=== PATIENT | male | born 1985 | race Hispanic/Latino ===

== ENCOUNTER 2018-04-18 22:16 | Emergency (ER) | payer OTHER ==
[2018-04-18] MEDS ORDERED: Naloxone 0.4 mg/ml Inj (Adult) ONE (22:19)
[2018-04-18] MEDS ORDERED: Dextrose 50% SYRINGE Inj (50 ml) ONE (22:25)
[2018-04-18] MEDS ORDERED: Dextrose 50% SYRINGE Inj (50 ml) IVP ONE (22:26)
[2018-04-18 22:54] LABS: BASO # 0.1 K/uL (0.0-0.2); BASO % 0.5 % (0.0-2.0); EOS # 0.1 K/uL (0.0-0.7); EOS % 0.4 % (0.0-4.0); HEMOGLOBIN 11.4 g/dL (12.0-18.0); LYMPH # 2.3 K/uL (1.0-4.3); LYMPH % 17.7 % (20.0-40.0); MEAN CELL VOLUME 86.4 fl (80.0-94.0); MEAN CORPUSCULAR HEMOGLOBIN 27.7 pg (27.0-31.0); MEAN CORPUSCULAR HGB CONC 32.1 g/dL (33.0-37.0); MEAN PLATELET VOLUME 8.4 fl (7.2-11.7); MONO # 0.9 K/uL (0.0-0.8); MONO % 7.1 % (0.0-10.0); NEUT # 9.5 K/uL (1.8-7.0); NEUT % 74.3 % (50.0-75.0); RBC 4.12 Mil/uL (4.40-5.90); RED CELL DISTRIBUTION WIDTH 16.5 % (11.5-14.5); WHITE BLOOD COUNT 12.8 K/uL (4.8-10.8)
[2018-04-18 23:06] LABS: VENOUS BLOOD GAS BASE EXCESS -3.1 mmol/L (0.0-2.0); VENOUS BLOOD GAS PCO2 88 mmHg (40-60); VENOUS BLOOD GAS PO2 18 mm/Hg (30-55); VENOUS BLOOD PH 7.12 (7.32-7.43)
[2018-04-18] MEDS ORDERED: Sodium Chloride 0.9% 1,000 ML IV STA ×2 (23:23)
[2018-04-18 23:25] LABS: ACETAMINOPHEN < 10.0 ug/ml (10.0-30.0); SALICYLATE < 1.0 mg/dl
--- NOTE | 2018-04-18 23:46 | ED PDOC ---
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 EMS states that patient was soaked and completely unresponsive to sternal rub with no paraphernalia seen on person, but heavy mucus secretions and spontaneous breathing noted. A finger stick and IV line were unable to be obtained / started as per EMS. On arrival to ED, pt received .1 of narcan and within minutes was slightly more responsive, making incomprehensible sounds while moving extremities and head. Pt immediately stripped of wet clothing, had left EJ peripheral line placed, finger stick glucose of 40 obtained, 2 amps of glucose given, and labs sent / pt put on monitor. After approximately 15 minutes, patient was reevaluated to be alert and oriented, stating he has type I diabetes and feels like his blood sugar is low, otherwise denying any other recent injury, illness, or drug use. 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 Denies diarrhea and constipation. Patient states that the wounds present on his right foot are being treated by a keyboard specialist and he has had gluteal cellulitis for many years, denying worsening of any infections. His only complaint a the moment is being very cold. Pt is cooperative at this time. Of note, patient's name entered from and other visits show a "Dion Tomlinson" with the same . PMD: unsure of PMD, but follows up at [facility] and [facility] Past Medical History Reviewed: Historical Data, Nursing Documentation, Vital Signs Vital Signs: Last Vital Signs Temp 93.4 F L 04/18/18 23:23 Pulse 78 04/18/18 23:23 Resp 16 04/18/18 23:23 BP 142/73 04/18/18 23:23 Pulse Ox 100 04/18/18 23:23 - Medical History PMH: Diabetes - Family History Family History: States: Unknown Family Hx - Home Medications Home Medications: Ambulatory Orders Medication Instructions Recorded Linagliptin [Tradjenta] 15 mg PO BID 08/10/17 Insulin Glargine,Hum.rec.anlog unit SQ BID 10/24/17 [Basaglar Kwikpen U-100] Insulin Lispro [Admelog] 15 unit SQ DAILY 03/02/18 Insulin Glargine,Hum.rec.anlog 15 unit SC BID 04/19/18 [Toujeo Solostar] Insulin Lispro [humALOG] 0 - 10 units SC ACTID 04/19/18 - Allergies Allergies/Adverse Reactions: Allergies Allergy/AdvReac Type Severity Reaction Status Date / Time No Known Allergies Allergy Verified 04/27/18 12:16 Review of Systems ROS Statement: Except As Marked, All Systems Reviewed And Found Negative Gastrointestinal: Negative for: Diarrhea, Constipation Skin: Positive for: Other (chronic cellulitis to buttocks and right foot) Neurological: Positive for: Other (loss of consciousness) Physical Exam - Reviewed Nursing Documentation Reviewed: Yes Vital Signs Reviewed: Yes - Physical Exam Appears: Positive for: No Acute Distress Skin: Positive for: Diaphoresis Eye Exam: Positive for: Normal appearance, EOMI, PERRL Neck: Positive for: Normal, Painless ROM, Supple Cardiovascular/Chest: Positive for: Regular Rate, Rhythm Respiratory: Positive for: Normal Breath Sounds. Negative for: Respiratory Distress Gastrointestinal/Abdominal: Positive for: Normal Exam, Soft. Negative for: Tenderness Male Genital Exam: Positive for: normal genitalia. 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 Medical Decision Making Medical Decision Making: Time: 2221 A/P: Altered mental status --Improved after narcan and further improved after 2 amps glucose --Workup for hypoglycemia, intoxication, and infectious source --Hypothermic with oral temp of 91 --Labs / cultures sent --Susana hugger placed and IV fluids started --Will start Vancomycin for possible cellulitis infection of buttock and right ankle --To be reassessed Initial Plan: --ABG --EKG --Acetaminophen chemistry --Alcohol serum --Salicylate chemistry --Drug screen --U-dip --CBC with differential --PTT / PT --CXR --Accucheck --Dextrose 50% 100ml IVP --Normal Saline IV --Blood culture --Susana hugger --Right foot XR --Urinalysis 2335 Pts POC lactate is 3.2. He is already receiving IV fluids. Body temperature increased to 93 degrees with [address]ana hug[address] in [address]. EKG normal sinus rhythm with Redman waves. [address] Hightower who is covering ICU and provided information. Spoke with Dr. Gomes who is covering service and agrees to admission into ICU. Pt meets severe sepsis criteria based on hypothermia, elevated WBC, and elevated lactate with source most likely cellulitis of buttock / right foot. Antibiotics started. Pt with normal bp, responsive to fluids, and admission order placed. Scribe Attestation: Documented by Mitzi Rodriguez, acting as a scribe for Madelin Monaco MD. Provider Scribe Attestation: All medical record entries made by the Scribe were at my direction and personally dictated by me. I have reviewed the chart and agree that the record accurately reflects my personal performance of the history, physical exam, medical decision making, and the department course for this patient. I have also personally directed, reviewed, and agree with the discharge instructions and disposition. Disposition - Clinical Impression Clinical Impression: Hypoglycemia, ANDREINA (acute kidney injury), Chronic foot ulcer, Diabetes mellitus, Hypothermia associated with environmental change - Patient ED Disposition Is Patient to be Admitted: Yes - Disposition Disposition Time: 23:50 Condition: CRITICAL
[2018-04-18] MEDS ORDERED: Vancomycin 1 g Inj ONE (23:50)
[2018-04-19 01:58] LABS: URINE BILIRUBIN NEGATIVE (NEGATIVE); URINE BLOOD SMALL (NEGATIVE); URINE CLARITY SLIGHTY-CLOUDY (Clear); URINE COLOR YELLOW (YELLOW); URINE GLUCOSE (UA) >=500 mg/dL (Normal); URINE LEUKOCYTE ESTERASE NEG Leu/uL (Negative); URINE PROTEIN 100 mg/dL (NEGATIVE)
[2018-04-19 02:18] VITALS: RESP 18
[2018-04-19 02:26] LABS: BARBITURATES, UR NEGATIVE (NEGATIVE); BENZODIAZEPINES, UR NEGATIVE (NEGATIVE); OPIATES, UR NEGATIVE (NEGATIVE); PHENCYCLIDINE, UR NEGATIVE (NEGATIVE)
[2018-04-19 03:44] VITALS: BP 131/70; PULSE 82; TEMP 97.9; O2SAT 100
--- NOTE | 2018-04-19 08:43 | RAD ---
Date of service: 04/19/2018 HISTORY: chest pain COMPARISON: No prior. FINDINGS: LUNGS: The lungs are well inflated and clear. PLEURA: No pleural effusions or pneumothorax. CARDIOVASCULAR: The heart is normal in size. No aortic atherosclerotic calcification present. OSSEOUS STRUCTURES: Within normal limits for the patient's age. VISUALIZED UPPER ABDOMEN: Normal. OTHER FINDINGS: None. IMPRESSION: No active pulmonary disease.
--- NOTE | 2018-04-19 11:17 | RAD ---
Date of service: 04/19/2018 PROCEDURE: Right Foot Radiographs. HISTORY: rule out cellulitis COMPARISON: None. FINDINGS: BONES: There is destruction, disorganization, sclerosis and malalignment in the midfoot involving the anterior talus calcaneus, tarsal bones and bases of the metatarsals. There is periarticular bone demineralization. JOINTS: The interphalangeal and metatarsophalangeal joint spaces are preserved. SOFT TISSUES: There is mild dorsal soft tissue swelling OTHER FINDINGS: None. IMPRESSION: Findings are most compatible Charcot's joint involving the midfoot.
--- NOTE | 2018-04-19 16:03 | CARD ---
APPROVED REPORT Date of service: 04/18/2018 EKG Measurement Heart [id number] AR 150P72 [id number] <Conclusion> Normal sinus rhythm Normal ECG
--- NOTE | 2018-04-20 09:06 | CP.PCM.PCO ---
Physician Communication Note - Physician Communication Note Physician Communication Note: Signed out AMA by before I have ssen the patient.
== END 2018-04-19 04:38 | disposition left against medical advice (07) ==
LOC: H.ER 22:16 → EDBD 22:16 → MERGE 23:54 → UNDOADMIN 23:54 → H.ERHOLD 23:54 → UNDODISIN 04-19 04:38
DX: R41.82 Altered mental status, unspecified (principal); T68.XXXA Hypothermia, initial encounter; E10.9 Type 1 diabetes mellitus without complications
CPT/HCPCS: 71045; 73630; 80320; 80324; 80329; 80345; 80346; 80349; 80353; 80358; 80361; 81003; 82803; 82948; 83605; 83992; 84484; 85025; 87040; 93005; 96365; 96366; 96375; 99285; J7030

== ENCOUNTER 2018-04-30 16:17 | Emergency (ER) | payer OTHER ==
[2018-04-30 16:18] VITALS: BMI 25.2
[2018-04-30 16:57] LABS: VENOUS BLOOD GAS BASE EXCESS -0.3 mmol/L (0.0-2.0); VENOUS BLOOD GAS PCO2 55 mmHg (40-60); VENOUS BLOOD GAS PO2 19 mm/Hg (30-55)
[2018-04-30 16:59] LABS: BASO # 0.1 K/uL (0.0-0.2); BASO % 0.7 % (0.0-2.0); EOS # 0.1 K/uL (0.0-0.7); EOS % 1.5 % (0.0-4.0); HEMOGLOBIN 11.9 g/dL (12.0-18.0); LYMPH # 2.1 K/uL (1.0-4.3); LYMPH % 26.2 % (20.0-40.0); MEAN CELL VOLUME 85.8 fl (80.0-94.0); MEAN CORPUSCULAR HEMOGLOBIN 27.8 pg (27.0-31.0); MEAN CORPUSCULAR HGB CONC 32.4 g/dL (33.0-37.0); MEAN PLATELET VOLUME 8.6 fl (7.2-11.7); MONO # 0.6 K/uL (0.0-0.8); MONO % 7.3 % (0.0-10.0); NEUT # 5.1 K/uL (1.8-7.0); NEUT % 64.3 % (50.0-75.0); NRBC % 0.1 % (0.0-0.0); RBC 4.29 Mil/uL (4.40-5.90); RED CELL DISTRIBUTION WIDTH 16.9 % (11.5-14.5)
--- NOTE | 2018-04-30 17:02 | ED PDOC ---
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 Additional Complaint(s): 33 year old male with a history of Type 1 diabetes, insulin dependent presents to the ED with lightheadedness. Patient reports he was driving his car when he started to feel lightheaded, became excessively sweaty and stopped the car. He does not remember what happened, but he passed out. Ambulance brought him here and he was found to have a sugar of 67. Patient has no recollection of the events transpired after he passed out, but he believes EMS was trying to give him juice. His brother was in the car with him at the time and called the ambulance. Patients last meal was a small breakfast this morning. After eating, his sugar was over 300 so he came himself insulin for coverage. Patient ate a small meal because he has been experiencing an upset stomach for the past couple of days. Yesterday, he intermittently vomited, so patient saw his PMD who prescribed him medication. PMD: Dr. Gustafson Past Medical History Reviewed: Historical Data, Nursing Documentation, Vital Signs Vital Signs: Last Vital Signs Temp 97.4 F L 04/30/18 16:23 Pulse 103 H 04/30/18 16:23 Resp 20 04/30/18 16:23 BP 182/90 H 04/30/18 16:23 Pulse Ox 99 04/30/18 16:23 - Medical History PMH: Diabetes (Type 1) Denies: Chronic Kidney Disease - Surgical History Other surgeries: right foot surgery - Family History Family History: States: Diabetes - Social History Current smoker - smoking cessation education provided: Yes Ex-Smoker (has not smoked in the last 12 months): No Alcohol: None Drugs: Denies - Immunization History Hx Tetanus Toxoid Vaccination: No Hx Influenza Vaccination: Yes Hx Pneumococcal Vaccination: Yes - Home Medications Home Medications: Ambulatory Orders Medication Instructions Recorded Linagliptin [Tradjenta] 15 mg PO BID 08/10/17 Insulin Glargine,Hum.rec.anlog unit SQ BID 10/24/17 [Basaglar Kwikpen U-100] Insulin Lispro [Admelog] 15 unit SQ DAILY 03/02/18 Insulin Glargine,Hum.rec.anlog 15 unit SC BID 04/19/18 [Marisol Morinostwm] Insulin Lispro [humALOG] 0 - 10 units SC ACTID 04/19/18 - Allergies Allergies/Adverse Reactions: Allergies Allergy/AdvReac Type Severity Reaction Status Date / Time No Known Allergies Allergy Verified 04/27/18 12:16 Review of Systems ROS Statement: Except As Marked, All Systems Reviewed And Found Negative Gastrointestinal: Positive for: Vomiting Neurological: Positive for: Other (lightheaded) Physical Exam - Reviewed Nursing Documentation Reviewed: Yes Vital Signs Reviewed: Yes - Physical Exam Appears: Positive for: Non-toxic, No Acute Distress Head Exam: Positive for: ATRAUMATIC, NORMOCEPHALIC Skin: Positive for: Diaphoresis (slightly) Eye Exam: Positive for: EOMI, PERRL ENT: Positive for: Other (Tacky mucous membranes) Neck: Positive for: Painless ROM, Supple Cardiovascular/Chest: Positive for: Regular Rate, Rhythm. Negative for: Murmur Respiratory: Positive for: Normal Breath Sounds. Negative for: Respiratory Distress Gastrointestinal/Abdominal: Positive for: Soft. Negative for: Tenderness Back: Positive for: Normal Inspection. Negative for: Muscle Spasm Extremity: Positive for: Normal ROM. Negative for: Deformity Lymphatic: Negative for: Adenopathy Neurologic/Psych: Positive for: Alert, Oriented (x3). Negative for: Motor/Sensory Deficits - Laboratory Results Result Diagrams: 04/30/18 16:45 04/30/18 16:45 - ECG O2 Sat by Pulse Oximetry: 99 (RA) Pulse Ox Interpretation: Normal Medical Decision Making Medical Decision Making: Time: 1630 Initial Impression: Hypoglycemia Initial Plan: --VBG --CMP --Lipase --Magnesium --Phosphorous --Urine dip --CBC with differentials --Glucose Time: 174 --Patient at [place] and had juice in ER. Blood sugar improved, labs show no clinically significant abnormalities. Will recheck blood pressure at 1830, if normal he will be stable for discharge. Scribe Attestation: Documented by Shyann Smith, acting as a scribe for Vanessa Kemp MD Provider Scribe Attestation: All medical record entries made by the Scribe were at my direction and personally dictated by me. I have reviewed the chart and agree that the record accurately reflects my personal performance of the history, physical exam, medical decision making, and the department course for this patient. I have also personally directed, reviewed, and agree with the discharge instructions and disposition. Disposition - Clinical Impression Clinical Impression: Hypoglycemia Counseled Patient/Family Regarding: Studies Performed, Diagnosis, Need For Followup - Disposition Disposition: Routine/Home Disposition Time: 18:53 Condition: IMPROVED Additional Instructions: FOLLOW UP WITH YOUR DOCTOR ON WEDNESDAY FOR REEVALUATION EAT AT LEAST 3 MEALS A DAY AND KEEP SOME CANDY WITH YOU AT ALL TIMES. Instructions: Low Blood Sugar in People With Diabetes
[2018-04-30 17:05] LABS: ALBUMIN 4.3 g/dL (3.5-5.0); ALT/SGPT 29 U/L (21-72); AST/SGOT 17 U/L (17-59); BLOOD UREA NITROGEN 23 mg/dl (9-20); CALCIUM 9.4 mg/dL (8.4-10.2); GFR NON-AFRICAN AMERICAN > 60; LIPASE 35 U/L (23-300)
[2018-04-30 19:04] VITALS: BP 134/76; PULSE 86; RESP 19; TEMP 98.7; O2SAT 100
== END 2018-04-30 19:03 | disposition home or self-care (01) ==
LOC: H.ER 16:17
DX: E11.649 Type 2 diabetes mellitus with hypoglycemia without coma (principal); Z79.4 Long term (current) use of insulin

== ENCOUNTER 2018-06-17 17:08 | Emergency (ER) | payer OTHER ==
[2018-06-17 17:08] VITALS: BMI 25.2
[2018-06-17] MEDS ORDERED: Dextrose 50% SYRINGE Inj (50 ml) IVP STA ×2 (17:16)
[2018-06-17] MEDS ORDERED: Sodium Chloride 0.9% 1,000 ML IV STA (17:23)
--- NOTE | 2018-06-17 17:26 | ED PDOC ---
HPI: General Adult Time Seen by Provider: 06/17/18 17:22 Chief Complaint (Nursing): Altered Mental Status Chief Complaint (Provider): Low blood sugar History Per: Patient, Family History/Exam Limitations: no limitations Onset/Duration Of Symptoms: Days (today) Additional Complaint(s): Pt. took his regular short acting and long acting insulin today. Only had a donut and soda today. Brother noticed him getting anxious, weak, speaking less, sweating so brought to the ER. Has had low blood sugar in the past as sometimes he does not eat but takes his insulin. Past Medical History Reviewed: Nursing Documentation, Vital Signs - Medical History PMH: Diabetes (Type 1) Denies: Chronic Kidney Disease - Surgical History Surgical History: No Surg Hx - Family History Family History: States: Unknown Family Hx - Immunization History Hx Tetanus Toxoid Vaccination: No Hx Influenza Vaccination: Yes Hx Pneumococcal Vaccination: Yes - Home Medications Home Medications: Ambulatory Orders Medication Instructions Recorded Insulin Glargine,Hum.rec.anlog 15 unit SQ Q12 10/24/17 [Basaglar Kwikpen U-100] Insulin Lispro [Admelog] 15 unit SQ ACTID 03/02/18 Alogliptin Eric/Metformin HCl 1 tab PO BID 06/17/18 [Alogliptin-Metformin 12.5-1000] Atorvastatin [Lipitor] 10 mg PO DAILY 06/17/18 Enalapril Maleate [Vasotec] 2.5 mg PO DAILY 06/17/18 - Allergies Allergies/Adverse Reactions: Allergies Allergy/AdvReac Type Severity Reaction Status Date / Time No Known Allergies Allergy Verified 06/17/18 17:11 Review of Systems ROS Statement: Except As Marked, All Systems Reviewed And Found Negative Constitutional: Positive for: Sweats, Weakness Neurological: Positive for: Weakness, Change in Speech, Dizziness Psych: Positive for: Anxiety Physical Exam - Reviewed Nursing Documentation Reviewed: Yes Vital Signs Reviewed: Yes - Physical Exam Appears: Positive for: Uncomfortable Head Exam: Positive for: ATRAUMATIC, NORMAL INSPECTION, NORMOCEPHALIC Skin: Positive for: Diaphoresis Eye Exam: Positive for: EOMI, Normal appearance, PERRL ENT: Positive for: Normal ENT Inspection. Negative for: Nasal Congestion Neck: Positive for: Normal, Painless ROM, Supple Cardiovascular/Chest: Positive for: Regular Rate, Rhythm Respiratory: Positive for: CNT, Normal Breath Sounds Gastrointestinal/Abdominal: Positive for: Normal Exam, Soft. Negative for: Tenderness Back: Positive for: Normal Inspection. Negative for: L CVA Tenderness, R CVA Tenderness Extremity: Positive for: Normal ROM. 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 Negative for: Motor/Sensory Deficits, Aphasia, Facial Droop - Laboratory Results Result Diagrams: 06/17/18 17:38 06/17/18 17:38 Interpretation Of Abn Labs: 26 glucose; improved post d50 - ECG ECG: Positive for: Interpreted By Me, Viewed By Me ECG Rhythm: Positive for: Normal QRS, Normal ST Segment, Sinus Rhythm - Progress ED Course And Treament: 1744: Pt. sugar on POC was less than 20. 2 amps D50 given and pt. more responsive. Communicating fully after. Will get bloods and continue to monitor sugar. 2018: Stable. AAOx3. Pain free. Tolerated po. Ambulated with no issues. Sugar maintained with no issues. Advised to eat with insulin. Not on any oral meds. Has capacity to make decisions. - Critical Care Total Time (In Min): 30 Documented Critical Care: Time excludes all time spent performint seperately billable procedures Disposition - Clinical Impression Clinical Impression: Hypoglycemia - Patient ED Disposition Is Patient to be Admitted: No Counseled Patient/Family Regarding: Studies Performed, Diagnosis, Need For Followup - Disposition Referrals: [facility] [Outside] - 06/20/18 Disposition: Routine/Home Disposition Time: 20:21 Condition: STABLE Additional Instructions: Return if not better in 3 days. Instructions: Low Blood Sugar in People With Diabetes
[2018-06-17 17:40] LABS: VENOUS BLOOD GAS BASE EXCESS 0.5 mmol/L (0.0-2.0); VENOUS BLOOD GAS PCO2 61 mmHg (40-60); VENOUS BLOOD GAS PO2 18 mm/Hg (30-55); VENOUS BLOOD PH 7.28 (7.32-7.43)
[2018-06-17 17:44] LABS: BASO % 0.6 % (0.0-2.0); EOS # 0.1 K/uL (0.0-0.7); EOS % 1.7 % (0.0-4.0); HEMOGLOBIN 13.9 g/dL (12.0-18.0); LYMPH # 1.9 K/uL (1.0-4.3); LYMPH % 29.5 % (20.0-40.0); MEAN CELL VOLUME 88.1 fl (80.0-94.0); MEAN CORPUSCULAR HEMOGLOBIN 28.5 pg (27.0-31.0); MEAN CORPUSCULAR HGB CONC 32.3 g/dL (33.0-37.0); MEAN PLATELET VOLUME 8.4 fl (7.2-11.7); MONO # 0.7 K/uL (0.0-0.8); MONO % 10.7 % (0.0-10.0); NEUT # 3.7 K/uL (1.8-7.0); NEUT % 57.5 % (50.0-75.0); RBC 4.88 Mil/uL (4.40-5.90); RED CELL DISTRIBUTION WIDTH 17.1 % (11.5-14.5); WHITE BLOOD COUNT 6.5 K/uL (4.8-10.8)
[2018-06-17 18:09] LABS: ALB/GLOB RATIO 0.9 (1.0-2.1); ALBUMIN 4.5 g/dL (3.5-5.0); ALT/SGPT 16 U/L (21-72); AST/SGOT 28 U/L (17-59); BLOOD UREA NITROGEN 14 mg/dl (9-20); CALCIUM 9.8 mg/dL (8.4-10.2); GFR NON-AFRICAN AMERICAN > 60
[2018-06-17 19:12] VITALS: BP 151/90; PULSE 84; RESP 16; O2SAT 99
[2018-06-17 19:13] VITALS: TEMP 98.2
--- NOTE | 2018-06-18 23:14 | CARD ---
APPROVED REPORT Date of service: 06/17/2018 EKG Measurement Heart [id number] 150P64 [id number] <Conclusion> Normal sinus rhythm Voltage criteria for left ventricular hypertrophy Abnormal ECG
== END 2018-06-17 20:39 | disposition home or self-care (01) ==
LOC: H.ER 17:08
DX: E11.65 Type 2 diabetes mellitus with hyperglycemia (principal); Z79.4 Long term (current) use of insulin
CPT/HCPCS: 80053; 80320; 82803; 82948; 84484; 85025; 93005; 96374; 99284; J7030